=== PATIENT | male | born 1955 | race Caucasian/White ===

== ENCOUNTER 2016-06-11 08:58 | Day surgery (SDC) | payer OTHER ==
[~2016-06-11 08:58] MED LIST: ACETAMINOPHEN 1,000 MG/100 ML 100 ML IV ONE; CELECOXIB 100 MG CAPSULE PO ONE; SCOPOLAMINE PATCH TOP ONE; ceFAZolin 2 GM/50 ML 50 ML IV ONE
[2016-06-11] MEDS ORDERED: LACTATED RINGERS 1,000 ML IV ONE ×2 (09:33→11:50)
[2016-06-11] MEDS ORDERED: BUPIVACAINE 0.5% PF 30 ML VIAL INFIL ONE ×2 (11:16)
[2016-06-11] MEDS ORDERED: fentaNYL 100 MCG/2 ML VIAL IVP ONE (11:30)
[2016-06-11] MEDS ORDERED: GLYCOPYRROLATE 1 MG/5 ML VIAL IVP ONE (11:30)
[2016-06-11] MEDS ORDERED: DEXAMETHASONE 4 MG/ML VIAL IVP ONE (11:30)
[2016-06-11] MEDS ORDERED: ROPIVACAINE 0.5% PF 20 ML AMPULE EP ONE (11:30)
[2016-06-11] MEDS ORDERED: MIDAZOLAM 2 MG/2 ML VIAL IVP ONE (11:30)
[2016-06-11] MEDS ORDERED: ACETAMINOPHEN 1,000 MG/100 ML VIAL IV ONE (11:30)
[2016-06-11] MEDS ORDERED: LIDOCAINE-MPF 2% 5 ML VIAL IM ONE (11:30)
[2016-06-11] MEDS ORDERED: PROPOFOL 200 MG/20 ML VIAL IVP ONE (11:30)
[2016-06-11] MEDS ORDERED: ROCURONIUM 50 MG/5 ML VIAL IVP ONE (11:30)
[2016-06-11] MEDS ORDERED: SUCCINYLCHOLINE 200 MG/10 ML VIAL IVP ONE (11:30)
[2016-06-11] MEDS ORDERED: fentaNYL 100 MCG/2 ML VIAL ONE (12:50)
[2016-06-11] MEDS ORDERED: oxyCOD/ACETAMIN 5 MG/325 MG TABLET PO ONE (13:23)
== END 2016-06-11 08:59 | disposition home or self-care (01) ==
PROC: 0PBB0ZZ Excision of Left Clavicle, Open Approach (ICD-10-PCS; principal; 2016-06-11 10:30)
DX: M19.012 Primary osteoarthritis, left shoulder (principal); G47.30 Sleep apnea, unspecified; Z79.82 Long term (current) use of aspirin; E03.9 Hypothyroidism, unspecified; Z96.642 Presence of left artificial hip joint; F17.290 Nicotine dependence, other tobacco product, uncomplicated; I10 Essential (primary) hypertension; E78.00 Pure hypercholesterolemia, unspecified
CPT/HCPCS: 23120; 73000; A9270; J0131; J0690; J3490; J7120

== ENCOUNTER 2016-08-17 14:05 | Outpatient (CLI) | payer OTHER | END 2016-08-17 14:06 | disposition home or self-care (01) | DX: G47.33 Obstructive sleep apnea (adult) (pediatric) (principal) ==

== ENCOUNTER 2017-02-07 13:02 | Outpatient (CLI) | payer OTHER | END 2017-02-07 13:03 | disposition home or self-care (01) | LOC: SC 13:02 | PROVIDERS: ATTEND Internal Medicine Pulmonary Disease | DX: G47.33 Obstructive sleep apnea (adult) (pediatric) (principal) | CPT/HCPCS: 99212; 99213 ==

== ENCOUNTER 2017-04-13 10:16 | Outpatient (CLI) | payer OTHER | END 2017-04-13 10:17 | disposition home or self-care (01) | LOC: SC 10:16 | PROVIDERS: ATTEND Nurse Practitioner Family | DX: G47.33 Obstructive sleep apnea (adult) (pediatric) (principal); G47.00 Insomnia, unspecified | CPT/HCPCS: 99212; 99214 ==

== ENCOUNTER 2017-08-18 10:07 | Outpatient (CLI) | payer OTHER | END 2017-08-18 10:08 | disposition home or self-care (01) | LOC: SC 10:07 | PROVIDERS: ATTEND Nurse Practitioner Family | DX: G47.33 Obstructive sleep apnea (adult) (pediatric) (principal) | CPT/HCPCS: 99212; 99214 ==

== ENCOUNTER 2018-04-12 13:43 | Outpatient (CLI) | payer MEDICARE, OTHER | END 2018-04-12 13:44 | disposition home or self-care (01) | LOC: SC 13:43 | PROVIDERS: ATTEND Nurse Practitioner Family | DX: G47.33 Obstructive sleep apnea (adult) (pediatric) (principal) | CPT/HCPCS: 99214; G0463; 99212 ==

== ENCOUNTER 2018-10-29 15:09 | Emergency (ER) | payer MEDICARE, OTHER ==
--- NOTE | 2018-10-29 16:00 | ED Physician Documentation ---
PD HPI SYNCOPE - Stated complaint Stated Complaint: DIZZY/SOA - Chief complaint Chief Complaint: Neuro - History obtained from History obtained from: Patient - History of Present Illness Witnessed: Unwitnessed Timing - onset: How many hours ago (feeling weak and lightheaded in the past hour or so. No chest pain. Had taken usual BP meds, had small brunch and coffee. Not much fluids. Was working outside but not briskly. His left deltoid was hurting due to shingles immunization yesterday. Started feeling lightheaded. Concerned about heart. No chest pain nor focal weakness. Did not pass out.) Duration: Minutes Preceding symptoms: Light headed, Generalized weakness. No: Unknown, Chest pain, Abdominal pain, Nausea / vomiting Associated symptoms: No: Chest pain, Dyspnea, Abdominal pain Contributing factors: Decreased PO intake, Exertion (light activity but was outside in hot day). No: Recent med change, Emotional upset, Just stood up Injury occurred: No: Fell, Head injury Similar symptoms before: Has not had sx before Recently seen: Not recently seen (had shingles immunization at store yesterday and says deltoid area is aching, but no general rash, itching, edema of lips/throat, dyspnea.) Review of Systems Constitutional: denies: Fever, Chills, Myalgias Nose: denies: Rhinorrhea / runny nose, Congestion Throat: denies: Sore throat Respiratory: denies: Cough GI: denies: Nausea, Vomiting, Diarrhea Skin: denies: Rash Musculoskeletal: denies: Extremity swelling Neurologic: reports: Generalized weakness, Near syncope. denies: Focal weakness, Numbness, Syncope, Altered mental status, Headache PD PAST MEDICAL HISTORY - Past Medical History Cardiovascular: Hypertension, High cholesterol Respiratory: Sleep apnea, CPAP use Endocrine/Autoimmune: HyPOthyroidism GI: None : None HEENT: Chronic vision loss Psych: Depression Musculoskeletal: Other Derm: None - Past Surgical History Past Surgical History: Yes General: Colonoscopy Ortho: Hip replacement, Other - Present Medications Home Medications: Ambulatory Orders Medication Instructions Recorded Confirmed Atorvastatin Calcium [Lipitor] 40 mg PO DAILY 06/10/16 06/11/16 Bupropion HCl [Wellbutrin Sr] 150 mg PO DAILY 06/10/16 06/11/16 Cetirizine [ZyrTEC] 10 mg PO DAILY 06/10/16 06/11/16 Levothyroxine Sodium [Synthroid] 50 mcg PO DAILY 06/10/16 06/11/16 Lisinopril 10 mg PO DAILY 06/10/16 06/11/16 Oxycodone HCl/Acetaminophen 1 - 2 each PO Q6H PRN #14 tablet 10/29/18 [Percocet 5-325 mg Tablet] - Allergies Allergies/Adverse Reactions: Allergies Allergy/AdvReac Type Severity Reaction Status Date / Time No Known Drug Allergies Allergy Verified 10/29/18 15:17 - Social History Does the pt smoke?: No Smoking Status: Never smoker Does the pt drink ETOH?: No Does the pt have substance abuse?: No - Immunizations Immunizations are current?: Yes PD ED PE NORMAL - Vitals Vital signs reviewed: Yes (BP low and patient says baseline BP usually more like 140 systolic) - General General: Alert and oriented X 3, No acute distress, Well developed/nourished - HEENT HEENT: Pharynx benign. No: Moist mucous membranes - Neck Neck: Supple, no meningeal sign, No adenopathy, No JVD - Cardiac Cardiac: RRR, No murmur - Respiratory Respiratory: Clear bilaterally - Abdomen Abdomen: Soft, Non tender - Derm Derm: Normal color, Warm and dry, No rash (left deltoid area is tender without redness. Mild warmth. ) - Extremities Extremities: No edema, No calf tenderness / cord - Neuro Neuro: Alert and oriented X 3, No motor deficit, Normal speech Results - Vitals Vitals: Vital Signs - 24 hr 10/29/18 10/29/18 10/29/18 15:15 16:34 17:48 Temperature 36.7 C Heart Rate 89 67 78 Respiratory 18 16 16 Rate Blood Pressure 95/54 L 142/65 H 142/62 H O2 Saturation 95 98 99 Oxygen O2 Source Room air - EKG (time done) 15:22 Rate: Rate (enter#) (90) Rhythm: NSR [place]: Normal Intervals: Normal CT QRS: Normal Ischemia: Normal ST segments. No: ST elevation c/w ischemia, ST depression - Labs Labs: Laboratory Tests 10/29/18 10/29/18 10/29/18 16:30 16:30 16:30 WBC 10.9 H RBC 4.85 Hgb 14.8 Hct 44.9 MCV 92.7 MCH 30.6 MCHC 33.0 RDW 14.8 Plt Count 207 MPV 8.0 Neut # (Auto) 7.8 H Lymph # (Auto) 2.0 [place] # (Auto) 0.7 Eos # (Auto) 0.2 Baso # (Auto) 0.1 Absolute Nucleated RBC 0.00 Nucleated RBC % 0.0 Sodium 137 Potassium 4.2 Chloride 102 Carbon Dioxide 24 Anion Gap 11.0 BUN 19 Creatinine 1.5 H Estimated GFR (MDRD) 47 L Glucose 125 H Calcium 9.0 Magnesium 2.1 Total Bilirubin 0.7 AST 22 ALT 25 Alkaline Phosphatase 63 Troponin I < 0.04 B-Natriuretic Peptide Total Protein 6.9 Albumin 3.7 Globulin 3.2 Albumin/Globulin Ratio 1.2 Lipase 28 10/29/18 16:30 WBC RBC Hgb Hct MCV MCH MCHC RDW Plt Count MPV Neut # (Auto) Lymph # (Auto) [place] # (Auto) Eos # (Auto) Baso # (Auto) Absolute Nucleated RBC Nucleated RBC % Sodium Potassium Chloride Carbon Dioxide Anion Gap BUN Creatinine Estimated GFR (MDRD) Glucose Calcium Magnesium Total Bilirubin AST ALT Alkaline Phosphatase Troponin I B-Natriuretic Peptide 25 Total Protein Albumin Globulin Albumin/Globulin Ratio Lipase PD MEDICAL DECISION MAKING - ED course Complexity details: reviewed results, re-evaluated patient (feeling better with IV fluids. ), considered differential (likely combination of hydration, meds, recent immunization. Improved with IV fluids and BP better/feels better. No signs of ACS/CHF. Has pain left arm from shingles shot. Does not seem anaphylactic though.), d/w patient Departure - Departure Disposition: 01 Home, Self Care Clinical Impression: Light-headed feeling, Transient hypotension, Dehydration Local reaction to immunization Qualifiers: Encounter type: initial encounter Qualified Code(s): T88.1XXA - Other complications following immunization, not elsewhere classified, initial encounter Condition: Stable Record reviewed to determine appropriate education?: Yes Follow-Up: Mehdi Curran ARNP [Primary Care Provider] - Prescriptions: Oxycodone HCl/Acetaminophen [Percocet 5-325 mg Tablet] 1 - 2 each PO Q6H PRN #14 tablet PRN Reason: pain Comments: Stay well-hydrated. Continue usual medications. Use some anti-inflammatories such as naproxen or ibuprofen for the sore arm. Add pain medicine if needed. Discharge Date/Time: 10/29/18 17:48
[2018-10-29] MEDS ORDERED: SODIUM CHLORIDE 0.9% 1,000 ML IV ONE (16:21)
[2018-10-29 16:39] LABS: BASOPHILS # (AUTO) 0.1 10^3/uL (0.0-0.1); BASOPHILS % (AUTO) 1.2 %; EOSINOPHILS # (AUTO) 0.2 10^3/uL (0.0-0.7); HGB - HEMOGLOBIN 14.8 g/dL (14.0-18.0); LYMPHOCYTES % (AUTO) 18.4 %; MEAN CORPUSCULAR HEMOGLOBIN 30.6 pg (27.0-31.0); MEAN CORPUSCULAR VOLUME 92.7 fL (80.0-94.0); MONOCYTES # (AUTO) 0.7 10^3/uL (0.0-1.0); MONOCYTES % (AUTO) 6.7 %; NEUTROPHILS # (AUTO) 7.8 10^3/uL (1.5-6.6); NEUTROPHILS % (AUTO) 71.7 %; PLT - PLATELET COUNT 207 10^3/uL (130-450); RED BLOOD COUNT 4.85 10^6/uL (4.70-6.10); RED CELL DISTRIBUTION WIDTH 14.8 % (12.0-15.0); WHITE BLOOD COUNT 10.9 x10^3/uL (4.8-10.8)
[2018-10-29 16:52] LABS: ALBUMIN 3.7 g/dL (3.2-5.5); ALBUMIN/GLOBULIN RATIO 1.2 (1.0-2.2); BILIRUBIN,TOTAL 0.7 mg/dL (0.2-1.0); CREATININE 1.5 mg/dL (0.6-1.2); MAGNESIUM 2.1 mg/dL (1.7-2.8); TOTAL PROTEIN 6.9 g/dL (6.7-8.2)
[2018-10-29] MEDS ORDERED: DEXAMETHASONE 10 MG/ML VIAL IVP STA (17:18)
[2018-10-29] MEDS ORDERED: KETOROLAC 30 MG/ML VIAL IVP STA (17:18)
[2018-10-29] MEDS ORDERED: oxyCODONE 5 MG TABLET PO STA (17:18)
[2018-10-29] MEDS ORDERED: oxyCODONE/ACET 5/325 Prepack 4 PO STA (17:18)
[2018-10-29 17:49] VITALS: BP 142/62
== END 2018-10-29 17:48 | disposition home or self-care (01) ==
LOC: ED 15:09
DX: R42 Dizziness and giddiness (principal); I95.89 Other hypotension; E86.0 Dehydration; M79.622 Pain in left upper arm; T88.1XXA Other complications following immunization, not elsewhere classified, initial encounter; I10 Essential (primary) hypertension
CPT/HCPCS: 36415; 80053; 83690; 83735; 83880; 84484; 85025; 93005; 96361; 96374; 99284; A9270

== ENCOUNTER 2019-02-27 11:44 | Outpatient (CLI) | payer MEDICARE, OTHER ==
--- NOTE | 2019-03-01 07:24 | Ultrasound Report ---
Reason: AAA SCREENING Procedure Date: 02/27/2019 Accession Number: [id number] / [id number] Procedure: US - Aorta Screening CPT Code: FULL RESULT: EXAM: AORTIC DOPPLER ULTRASOUND EXAM DATE: 02/27/2019 12:20 PM CLINICAL HISTORY: AAA screening. COMPARISON: None. TECHNIQUE: Real-time sonographic imaging of retroperitoneal vascular structures, including color-flow, Doppler flow and spectral analysis was performed by the gum rolling machine tender. Multiple patient intake representative static images were saved for review. FINDINGS: Aorta: The abdominal aorta was adequately visualized. No evidence for abdominal aortic aneurysm. Aorta: Proximal: Sagittal AP 2.2 cm. Mid: Transverse 2.0 x 2.0 cm. Distal: Transverse 1.9 x 2.2 cm. Caliber: WNL: Yes. Plaque visualized: No. Iliacs: Right Iliac: Transverse 1.0 x 1.4 cm. Left Iliac: Transverse 1.2 x 1.3 cm. Iliac Vessels: The visualized proximal common iliac arteries are normal in caliber. Other: None. IMPRESSION: No abdominal aortic aneurysm. RADIA
== END 2019-02-27 11:45 | disposition home or self-care (01) ==
LOC: DI 11:44
PROVIDERS: ATTEND Internal Medicine
DX: Z13.6 Encounter for screening for cardiovascular disorders (principal)
CPT/HCPCS: 76706

== ENCOUNTER 2019-03-15 07:49 | Day surgery (SDC) | payer MEDICARE, OTHER ==
[2019-03-15] MEDS ORDERED: fentaNYL 250 MCG/5 ML VIAL IVP ONE (07:50)
[2019-03-15] MEDS ORDERED: MIDAZOLAM 2 MG/2 ML VIAL IVP ONE (07:50)
[2019-03-15] MEDS ORDERED: LACTATED RINGERS 1,000 ML IV ONE (07:58)
[2019-03-15 11:02] VITALS: BP 106/54
== END 2019-03-15 07:50 | disposition home or self-care (01) ==
LOC: SDS 07:49
PROVIDERS: ATTEND Surgery
PROC: 0DBH8ZZ Excision of Cecum, Via Natural or Artificial Opening Endoscopic (ICD-10-PCS; 2019-03-15)
PROC: 0DBK8ZZ Excision of Ascending Colon, Via Natural or Artificial Opening Endoscopic (ICD-10-PCS; principal; 2019-03-15 09:15)
DX: Z12.11 Encounter for screening for malignant neoplasm of colon (principal); D12.2 Benign neoplasm of ascending colon; D12.0 Benign neoplasm of cecum; K57.30 Diverticulosis of large intestine without perforation or abscess without bleeding; K64.8 Other hemorrhoids; G47.30 Sleep apnea, unspecified; I10 Essential (primary) hypertension; F17.200 Nicotine dependence, unspecified, uncomplicated
CPT/HCPCS: 45385; J3010; J7120

== ENCOUNTER 2020-08-08 11:00 | Outpatient (CLI) | payer MEDICARE, OTHER ==
--- NOTE | 2020-08-08 16:42 | XRAY Report ---
PROCEDURE: Knee Standing RT INDICATIONS: RIGHT KNEE JOINT PAIN TECHNIQUE: 3 views of the right knee, and 1 view of the left knee. COMPARISON: None. FINDINGS: Bones: No acute fractures or dislocations. No suspicious bony lesions. Joint spaces appear normal with weightbearing. Moderate right knee tricompartmental osteoarthritis. Moderate lateral and medial compartment left knee(s) arthritis. Soft tissues: No knee joint effusions. No suspicious soft tissue calcification. IMPRESSION: 1. Moderate right knee tricompartmental osteoarthritis. 2. Moderate left knee medial and lateral compartment osteoarthritis. Reviewed by: Beverley Hernandez MD, PhD on 08/08/2020 4:40 PM PDT Approved by: Beverley Hernandez MD, PhD on 08/08/2020 4:40 PM PDT Station ID: [id number]
== END 2020-08-08 23:59 | disposition home or self-care (01) ==
LOC: DI.N 11:00
PROVIDERS: ATTEND Physician Assistant
DX: M17.0 Bilateral primary osteoarthritis of knee (principal)

== ENCOUNTER 2020-12-03 10:01 | Outpatient (CLI) | payer MEDICARE, OTHER ==
--- NOTE | 2020-12-03 11:48 | XRAY Report ---
PROCEDURE: Knee 3 View RT INDICATIONS: UNSPECIFIED INTERNAL DERANGEMENT OF RIGHT KNEE TECHNIQUE: 3 views of the right knee(s) were acquired. COMPARISON: None. FINDINGS: Bones: No fractures or dislocations but there is degenerative osteoarthritic change that is moderate ly severe at the patellofemoral joint and moderate at both the medial and lateral compartments of the right knee on the frontal view. No effusion or loose body found.. No suspicious bony lesions. Soft tissues: No joint effusion. No suspicious soft tissue calcifications. IMPRESSION: No trauma found but degenerative changes are present at all 3 compartments of the right knee, most pronounced at the patellofemoral joint. Reviewed by: Nicholas Elias MD on 12/03/2020 11:46 AM PDT Approved by: Nicholas Elias MD on 12/03/2020 11:46 AM PDT Station ID: [id number]
== END 2020-12-03 10:02 | disposition home or self-care (01) ==
LOC: DI 10:01
PROVIDERS: ATTEND Family Medicine
DX: M17.11 Unilateral primary osteoarthritis, right knee (principal)

== ENCOUNTER 2022-01-13 12:34 | Outpatient (CLI) | payer MEDICARE, OTHER ==
--- NOTE | 2022-01-13 17:28 | CT Report ---
PROCEDURE: Low Dose Lung Cancer Screen INDICATIONS: CURRENT SMOKER TECHNIQUE: Noncontrast 1mm axial images were acquired from the pulmonary apices to the posterior costophrenic an gles. Axial 5 mm soft tissue kernel reconstructions were performed as well as 8 mm axial MIP and cor onal and sagittal 5 mm reformations. For radiation dose reduction, the following was used: automate d exposure control, adjustment of mA and/or kV according to patient size. COMPARISON: None FINDINGS: Image quality: Excellent. Lungs and pleura: 10 mm groundglass opacity in the right middle lobe series 6 image 74. 4 x 6 mm grou ndglass nodule in the right middle lobe series 6 image 84. 5 mm calcified nodule in the right lower l obe. No other nodules or masses. No acute air space opacities. No pleural effusions or pneumothorax. Central and peripheral airways are patent and normal in caliber. Mediastinum: Heart size is normal. No pericardial effusion. No mediastinal adenopathy by size crit eria. Thoracic aorta and central pulmonary arteries are normal in size. Esophagus is normal in yumiko bolivar. No hiatal hernia. Bones and chest wall: No suspicious bony lesions. No vertebral body compression fractures. No axil macey or supraclavicular adenopathy by size criteria. The thyroid is normal in size. Abdomen: Visualized upper abdominal solid organs and bowel loops appear normal in the absence of con trast. IMPRESSION: Groundglass nodules in the right middle lobe measuring 10 x 10 mm and 4 x 6 mm. Lung-RAD S 2: Very low likelihood of becoming clinically active CA due to size or lack of growth, continue an nual screening in 12 months. Reviewed by: Donte Mak on 01/13/2022 5:26 PM PDT Approved by: Donte Mak on 01/13/2022 5:26 PM PDT Station ID: [id number]
== END 2022-01-13 12:35 | disposition home or self-care (01) ==
LOC: DI 12:34
PROVIDERS: ATTEND Student in an Organized Health Care Education/Training Program
DX: Z12.2 Encounter for screening for malignant neoplasm of respiratory organs (principal); F17.210 Nicotine dependence, cigarettes, uncomplicated; R91.8 Other nonspecific abnormal finding of lung field

== ENCOUNTER 2022-04-27 11:43 | Outpatient (CLI) | payer MEDICARE, OTHER ==
[2022-04-27 12:02] LABS: BILIRUBIN,URINE NEGATIVE (NEGATIVE); GLUCOSE, URINE (UA) NEGATIVE (NEGATIVE); KETONES,URINE (UA) NEGATIVE (NEGATIVE); LEUKOCYTE ESTERASE, URINE NEGATIVE (NEGATIVE); NITRITE,URINE NEGATIVE (NEGATIVE); OCCULT BLOOD,URINE NEGATIVE (NEGATIVE); PH,URINE 6.5 PH (5.0-7.5); PROTEIN,URINE NEGATIVE (NEGATIVE); UROBILINOGEN,URINE 0.2 (NORMAL) E.U./dL (NORMAL)
[2022-04-27 12:03] LABS: CLARITY,URINE CLEAR (CLEAR)
[2022-04-27 12:30] LABS: ALBUMIN/GLOBULIN RATIO 1.3 (1.0-2.2); BILIRUBIN,TOTAL 0.8 mg/dL (0.2-1.0); CALCIUM 9.4 mg/dL (8.5-10.3); CREATININE 0.9 mg/dL (0.6-1.2); POTASSIUM 4.1 mmol/L (3.5-5.0)
== END 2022-04-27 11:44 | disposition home or self-care (01) ==
LOC: LAB 11:43
PROVIDERS: ATTEND Physician Assistant
DX: L30.9 Dermatitis, unspecified (principal)
CPT/HCPCS: 36415; 80053; 81003; 86060

== ENCOUNTER 2022-06-05 11:53 | Outpatient (CLI) | payer MEDICARE, OTHER ==
[2022-06-05] MEDS ORDERED: iohexoL-300 100 ML VIAL IVP ONE (12:38)
--- NOTE | 2022-06-05 19:31 | CT Report ---
PROCEDURE: ABDOMEN W/WO INDICATIONS: KIDNEY CYST CONTRAST: 100ml omni 300 TECHNIQUE: 4 phase scanning was performed. After the administration of intravenous contrast, 5 mm thick section s acquired from the diaphragm to the symphysis. 5 mm coronal and sagittal reformats were acquired. For radiation dose reduction, the following was used: automated exposure control, adjustment of mA a nd/or kV according to patient size. COMPARISON: None. Correlation made to low-dose lung CT dated 01/13/2022 FINDINGS: Image quality: Excellent. Lung bases: Lung bases are clear. Heart size is normal. Kidneys: A few small cysts in each kidney. Partially exophytic lateral left lower pole cyst measures 1.5 cm in greatest diameter. It has precontrast Hounsfield units of 12.5 and post contrast enhanceme nt up to 18.5. There is a partially exophytic lateral left upper pole cortical lesion measuring rough ly 2.2 cm in the coronal direction. Precontrast Hounsfield units are 45. Post contrast Hounsfield uni ts demonstrate enhancement between 61 and 70. There are a few subcentimeter nonenhancing hyperdense c ysts arising from each kidney. No nephrolithiasis or hydronephrosis. Other solid organs: The liver, gallbladder, adrenal glands, biliary tree, pancreas, and spleen are no rmal. The spleen contains several punctate calcifications consistent with healed granulomas. Nodes and vessels: No retroperitoneal or mesenteric adenopathy by size criteria. Aorta and inferior vena cava are normal in size. Bowel and peritoneum: Unenhanced bowel loops are normal in caliber. No free fluid or air. Bones: No suspicious bony lesions. No vertebral body compression fractures. Miscellaneous: Small fat-containing umbilical hernia. IMPRESSION: 1. 2.2 cm solid, enhancing left lateral upper pole renal mass with differential diagnosis of benign a nd malignant etiologies, oncocytoma and renal cell carcinoma. 2. No evidence of retroperitoneal adenopathy or metastasis in the abdomen. 3. Findings of healed granulomatous disease in the spleen. 4. Fat-containing umbilical hernia. Reviewed by: Monica Arora MD on 06/05/2022 6:30 PM AKST Approved by: Monica Arora MD on 06/05/2022 6:30 PM [place] Station ID: [id number]
== END 2022-06-05 11:54 | disposition home or self-care (01) ==
LOC: LAB 11:53
PROVIDERS: ATTEND Urology
DX: N28.1 Cyst of kidney, acquired (principal); N28.89 Other specified disorders of kidney and ureter; K42.9 Umbilical hernia without obstruction or gangrene
CPT/HCPCS: 36415; 74170; 82565; 84520; Q9967

== ENCOUNTER 2023-04-06 11:50 | Outpatient (CLI) | payer MEDICARE, OTHER ==
[2023-04-06 12:34] LABS: CREATININE 1.1 mg/dL (0.6-1.3)
[2023-04-06] MEDS ORDERED: iohexoL-300 100 ML VIAL IVP ONE (13:19)
--- NOTE | 2023-04-06 16:47 | CT Report ---
PROCEDURE: ABDOMEN W/WO INDICATIONS: RENAL MASS CONTRAST: 140ml omni 300 TECHNIQUE: 4 phase scanning was performed. After the administration of intravenous contrast, 5 mm thick section s acquired from the diaphragm to the symphysis. 5 mm coronal and sagittal reformats were acquired. For radiation dose reduction, the following was used: automated exposure control, adjustment of mA a nd/or kV according to patient size. COMPARISON: Abdominal CT 06/05/2022. FINDINGS: Image quality: Adequate. There is streak artifact from positioning of arms. Lung bases: Lung bases are clear. Heart size is normal. Kidneys: Stable small cysts bilaterally. Redemonstration of partially exophytic enhancing mass in the lateral superior pole of the left kidney measuring up to 2.2 cm in coronal dimension (8/49), stable from prior. In the lateral left lower pole there is a partially exophytic cyst measuring 1.5 cm, stab le from prior. There are a few subcentimeter nonenhancing hyperdense cysts bilaterally, likely hemorr hagic cysts. No nephrolithiasis or hydronephrosis. Other solid organs: The liver, gallbladder, adrenal glands, biliary tree, pancreas, and spleen are no rmal. The spleen contains several punctate calcifications consistent with healed granulomas. Nodes and vessels: No retroperitoneal or mesenteric adenopathy by size criteria. Aorta and inferior vena cava are normal in size. Bowel and peritoneum: Unenhanced bowel loops are normal in caliber. No free fluid or air. Bones: No suspicious bony lesions. No vertebral body compression fractures. Miscellaneous: Small fat-containing umbilical hernia. IMPRESSION: 1. Left lateral superior pole enhancing mass measuring 2.2 cm, stable since 06/05/2022. Differential d iagnostic considerations include benign and malignant etiologies, such as oncocytoma and renal cell c arcinoma. 2. No evidence of retroperitoneal adenopathy or metastasis in the abdomen. Reviewed by: Kimmie Wright MD on 04/06/2023 4:45 PM PST Approved by: Kimmie Wright MD on 04/06/2023 4:45 PM PST Station ID: [id number]
== END 2023-04-06 11:51 | disposition home or self-care (01) ==
LOC: LAB 11:50
PROVIDERS: ATTEND Physician Assistant Medical
DX: N28.89 Other specified disorders of kidney and ureter (principal)
CPT/HCPCS: 36415; 74170; 82565; Q9967

== ENCOUNTER 2023-04-25 14:07 | Outpatient (CLI) | payer MEDICARE, OTHER ==
--- NOTE | 2023-04-25 19:41 | CT Report ---
PROCEDURE: CT brain without contrast INDICATIONS: 68-year-old male with migraine headaches TECHNIQUE: Helical axial CT of the brain was obtained without contrast and reformatted in multiple p lanes. Radiation dose reduction was achieved using automated exposure control or adjustment of mA and /or kV according to patient size. COMPARISON: None FINDINGS: CSF spaces: Ventricles are appropriate in size and position. No hydrocephalus. Basal cisterns unre markable. Brain: No midline shift. No intracranial masses or hemorrhage. Werner-white matter interface is norm al. Moderate atrophy and multifocal white matter chronic ischemic change present. Skull and face: Calvarium and skull base are unremarkable without suspicious lesion. Sinuses: Visualized sinuses and mastoids are clear. IMPRESSION: Moderate atrophy and chronic ischemic change without intracranial hemorrhage or mass effect. Reviewed by: Luke Carbajal MD on 04/25/2023 6:40 PM [facility] [place] Approved by: Luke Carbajal MD on 04/25/2023 6:40 PM [facility] [place] Station ID: [id number]
== END 2023-04-25 14:08 | disposition home or self-care (01) ==
LOC: DI 14:07
PROVIDERS: ATTEND Nurse Practitioner Family
DX: R22.0 Localized swelling, mass and lump, head (principal); G43.909 Migraine, unspecified, not intractable, without status migrainosus; G31.89 Other specified degenerative diseases of nervous system

== ENCOUNTER 2023-12-12 10:50 | Outpatient (CLI) | payer MEDICARE, OTHER ==
--- NOTE | 2023-12-12 21:15 | CT Report ---
PROCEDURE: Lung Cancer Screen INDICATIONS: SMOKER TECHNIQUE: A CT scan of the chest was performed. Intravenous contrast media was not administered. Images were re corded and evaluated at appropriate window settings. Reformats: axial MIP of the chest, coronal and s agittal. For radiation dose reduction, the following was used: automated exposure control, adjustment of mA and/or kV according to patient size. COMPARISON: CT chest 01/13/2022 FINDINGS: Image quality: Excellent. Prior cancer history: Unknown Lungs and pleura: No pleural effusions. No pneumothorax. Previously identified 10 mm groundglass opa [place] in the right middle lobe seen on series 4 image 59 is unchanged. Additional nodular groundglass opacity within the right middle lobe on series 4 image 67 measures 4 mm decreased in size compared to prior exam. Calcified right lower lobe nodule is stable. No new nodules are identified. Mediastinum: Heart size is normal. No pericardial effusion. No large vessel abnormality. No mediastin al adenopathy by size criteria. Calcified mediastinal lymph nodes likely related to prior granulomat ous exposure. Chest wall and lower neck: Thyroid is unremarkable. No axillary or supraclavicular adenopathy by size . Bones: No aggressive osseous abnormality. Upper Abdomen: Unremarkable. IMPRESSION: Similar versus improved appearance of previous groundglass and solitary pulmonary nodules Lung RAD: 2 - Benign. Recommendation: Annual follow-up Non-Lung Significant Findings: None. Reviewed by: Leticia Land MD on 12/12/2023 9:14 PM PDT Approved by: Leticia Land MD on 12/12/2023 9:14 PM PDT Station ID: [id number]
== END 2023-12-12 10:51 | disposition home or self-care (01) ==
LOC: DI 10:50
PROVIDERS: ATTEND Student in an Organized Health Care Education/Training Program
DX: Z12.2 Encounter for screening for malignant neoplasm of respiratory organs (principal); F17.210 Nicotine dependence, cigarettes, uncomplicated; R91.8 Other nonspecific abnormal finding of lung field; R91.1 Solitary pulmonary nodule